=== PATIENT | male | born 1960 | race Hispanic/Latino ===

== ENCOUNTER 2017-01-21 06:35 | Day surgery (SDC) | payer MEDICARE ==
[2017-01-21 06:35] VITALS: BMI 30.1
[2017-01-21 06:45] VITALS: RESP 18; TEMP 97.8; O2SAT 98
[2017-01-21 07:11] LABS: BASO # 0.04 K/mm3 (0.0-2.0); BASO % 0.6 % (0.0-3.0); EOS # 0.2 (0.0-0.7); EOS % 2.8 % (1.5-5.0); GRAN # 3.64 (1.4-6.5); GRAN % 50.4 % (50.0-68.0); HEMATOCRIT 47.5 % (42.0-52.0); LYMPH # 2.6 (1.2-3.4); LYMPH % 36.5 % (22.0-35.0); MEAN CELL VOLUME 89.5 fl (80.0-105.0); MEAN CORPUSCULAR HEMOGLOBIN 33.3 pg (25.0-35.0); MEAN CORPUSCULAR HGB CONC 37.3 g/dl (31.0-37.0); MONO # 0.7 (0.1-0.6); MONO % 9.7 % (1.0-6.0); RED CELL DISTRIBUTION WIDTH 12.8 % (11.5-14.5); WHITE BLOOD COUNT 7.2 10^3/ul (4.5-11.0)
[2017-01-21 07:17] LABS: INR 1.04 (0.93-1.08); PARTIAL THROMBOPLASTIN TIME 27.1 Seconds (23.7-30.8)
[2017-01-21 07:23] LABS: ALB/GLOB RATIO 1.3 (1.1-1.8); ALKALINE PHOSPHATASE 101 U/L (38-126); ALT/SGPT 38 U/L (7-56); AST/SGOT 27 U/L (17-59); BLOOD UREA NITROGEN 11 mg/dL (7-21); CALCIUM 9.3 mg/dL (8.4-10.5); CARBON DIOXIDE 27 mmol/L (21-33); CHLORIDE 105 mmol/L (98-107); GFR AFRICAN-AMERICAN > 60; GLUCOSE,RANDOM 180 mg/dL (70-110); POTASSIUM 4.3 mmol/L (3.6-5.0); SODIUM 142 mmol/L (132-148)
[2017-01-21 07:34] LABS: TROPONIN I < 0.01 ng/mL
--- NOTE | 2017-01-21 08:17 | RAD ---
HISTORY: CHEST PAIN COMPARISON: 03/22/2014 FINDINGS: LUNGS: No active pulmonary disease. PLEURA: No significant pleural effusion identified, no pneumothorax apparent. CARDIOVASCULAR: Normal. OSSEOUS STRUCTURES: No significant abnormalities. VISUALIZED UPPER ABDOMEN: Normal. OTHER FINDINGS: None. IMPRESSION: No active disease.
--- NOTE | 2017-01-21 08:59 | ED PDOC ---
Arrival/HPI - General Chief Complaint: Chest Pain Time Seen by Provider: 01/21/17 07:05 Historian: Patient - History of Present Illness Narrative History of Present Illness (Text): 01/21/17 07:00 Nelson Suh is a 56 year old male, whose PMH includes five cardiac stents, presents to the emergency department complaining of chest pain since last night. Patient describes the pain as a pressure sensation at the sub-sternal. Patient notes calling Dr. Blackburn who advised him to come into the emergency department for evaluation. Patient denies shortness of breath, cough, fever, headache, or other complaints. Patient is also a heavy smoker (1 pack per day). PMD: Dr. Shannon Anglin Time/Duration: Other (last night) Symptom Onset: Sudden Symptom Course: Unchanged Quality: Pressure Context: Home Past Medical History - Provider Review Nursing Documentation Reviewed: Yes - Infectious Disease Hx of Infectious Diseases: None - Tetanus Immunization Tetanus Immunization: Unknown - Cardiac Hx Angina: Yes Hx Cardiac Arrhythmia: Yes Hx Hypertension: Yes Hx Pacemaker: No - Pulmonary Hx Respiratory Disorders: No - Neurological Hx Paralysis: No - HEENT Hx HEENT Disorder: (glasses, [place] right ear) - Renal Hx Renal Disorder: No - Endocrine/Metabolic Hx Diabetes Mellitus Type 2: Yes (on insulin) - Hematological/Oncological Hx Blood Transfusions: Yes (2003) - Integumentary Hx Dermatological Disorder: No - Musculoskeletal/Rheumatological Hx Musculoskeletal Disorders: No Hx Falls: No - Gastrointestinal Hx Gastroesophageal Reflux: Yes - Genitourinary/Gynecological Hx Genitourinary Disorders: No - Psychiatric Hx Psychophysiologic Disorder: No Hx Emotional Abuse: No Hx Physical Abuse: No Hx Substance Use: No - Surgical History Hx Cholecystectomy: Yes Hx Coronary Stent: Yes (x5) Other/Comment: ears - Anesthesia Hx Anesthesia Reactions: No Hx Malignant Hyperthermia: No - Suicidal Assessment Feels Threatened In Home Enviroment: No Family/Social History - Physician Review Nursing Documentation Reviewed: Yes Family/Social History: Unknown Family HX Smoking Status: Heavy Smoker > 10 Cigarettes Daily Hx 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) Hx Substance Use: No Hx Substance Use Treatment: No Allergies/Home Meds Allergies/Adverse Reactions: Allergies No Known Allergies Allergy (Verified 01/04/15 04:46) Home Medications: Home Meds Medication Instructions Recorded Confirmed Metformin HCl 1,000 mg PO BID 03/22/14 01/21/17 Atorvastatin Calcium [Lipitor] 80 mg PO DIN 03/24/14 01/21/17 Clopidogrel [Plavix] 75 mg PO DAILY 03/24/14 01/21/17 Aspirin [Ecotrin] 81 mg PO DAILY 01/18/17 01/21/17 Insulin NPH Hum/Reg Insulin Hm 50 units SC ACBD 01/18/17 01/21/17 [Humulin 70/30 70 U/ml-30 U/ml 10 ml] Lisinopril [Zestril] 5 mg PO DAILY 01/18/17 01/21/17 Review of Systems - Review of Systems Constitutional: absent: Fevers Respiratory: absent: SOB, Cough Cardiovascular: Chest Pain (midsternal) Musculoskeletal: absent: Back Pain Neurological: absent: Headache Physical Exam Vital Signs Reviewed: Yes Vital Signs Temp Pulse Resp BP Pulse Ox 01/21/17 16:50 97.8 F 76 18 132/76 01/21/17 15:50 97.8 F 78 18 122/74 01/21/17 14:50 97.8 F 80 18 111/70 01/21/17 14:20 97.8 F 82 18 109/68 01/21/17 14:00 82 01/21/17 13:50 97.8 F 81 18 115/71 01/21/17 13:20 97.8 F 76 18 124/67 01/21/17 12:50 97.8 F 75 18 117/69 01/21/17 12:35 97.8 F 82 18 123/71 01/21/17 12:20 97.8 F 78 18 125/75 01/21/17 12:05 97.8 F 81 18 117/70 01/21/17 11:50 97.8 F 78 18 134/74 01/21/17 11:35 97.8 F 80 18 117/70 01/21/17 11:20 97.8 F 75 18 116/73 01/21/17 11:05 97.8 F 72 18 114/70 01/21/17 08:16 100 H 18 135/89 98 01/21/17 06:35 97.8 F 108 H 18 138/80 98 Temperature: Afebrile Blood Pressure: Normal Pulse: Tachycardic Respiratory Rate: Normal Appearance: Positive for: Well-Appearing, Non-Toxic, Comfortable Pain Distress: None Mental Status: Positive for: Alert and Oriented X 3 - Systems Exam Head: Present: Atraumatic, Normocephalic Pupils: Present: PERRL Extroacular Muscles: Present: EOMI Conjunctiva: Present: Normal Mouth: Present: Moist Mucous Membranes Neck: Present: Normal Range of Motion Respiratory/Chest: Present: Clear to Auscultation, Good Air Exchange. No: Respiratory Distress, Accessory Muscle Use Cardiovascular: Present: Tachycardic. No: Murmurs Abdomen: Present: Normal Bowel Sounds. No: Tenderness, Distention, Peritoneal Signs Upper Extremity: Present: Normal Inspection. No: Cyanosis, Edema Lower Extremity: Present: Normal Inspection. No: Edema Neurological: Present: GCS=15, CN II-XII Intact, Speech Normal Skin: Present: Warm, Dry, Normal Color. No: Rashes Psychiatric: Present: Alert, Oriented x 3, Normal Insight, Normal Concentration Medical Decision Making ED Course and Treatment: 01/21/17 07:00 Impression: 56 year old male with chest pain described as pressure since last night. No cough, shortness of breath, or fever. Plan: -- EKG -- Chest X-ray -- Aspirin and Plavix -- Labs -- Reassess and disposition Progress Notes: EKG: Ordered, reviewed, and independently interpreted the EKG. Rate : 113 BPM Rhythm :sinus tachycardia Interpretation : Wide axis deviation. No changes compared to previous EKG. Comparison : 03/22/2014 01/21/17 Chest X-ray: Creator : CRYS QIU MD COMPARISON:03/22/2014 FINDINGS: LUNGS: No active pulmonary disease. PLEURA: No significant pleural effusion identified, no pneumothorax apparent. CARDIOVASCULAR: Normal. OSSEOUS STRUCTURES: No significant abnormalities. VISUALIZED UPPER ABDOMEN: Normal. OTHER FINDINGS: None. IMPRESSION: No active disease. 01/21/17 07:40 Reevaluation: On reevaluation the patient feels better and is in no acute distress. I have discussed the results and plan with the patient, who expresses understanding. Patient given the opportunity to ask question, all questions were answered and there is agreement with the plan to discharge the patient home. Patient is stable for discharge. Patient was instructed to follow up with physician/clinic in 1-2 days or return if symptoms persist/worsen or new concerning symptoms arise. - Lab Interpretations Lab Results: 01/21/17 07:00 01/21/17 07:00 Lab Results 01/21/17 07:00: PT 11.2, INR 1.04, APTT 27.1 01/21/17 07:00: WBC 7.2, RBC 5.31, Hgb 17.7, Hct 47.5, MCV 89.5, MCH 33.3, MCHC 37.3 H, RDW 12.8, Plt Count 235, MPV 9.0, Gran % 50.4, Lymph % (Auto) 36.5 H, [place] % (Auto) 9.7 H, Eos % (Auto) 2.8, Baso % (Auto) 0.6, Gran # 3.64, Lymph # 2.6, [place] # 0.7 H, Eos # 0.2, Baso # 0.04 01/21/17 07:00: Sodium 142, Potassium 4.3, Chloride 105, Carbon Dioxide 27, Anion Gap 14, BUN 11, Creatinine 0.9, Est GFR ( Amer) > 60, Est GFR (Non- Af Amer) > 60, Random Glucose 180 H, Calcium 9.3, Total Bilirubin 1.0, AST 27, ALT 38, Alkaline Phosphatase 101, Lactate Dehydrogenase 433, Total Creatine Kinase 56, Troponin I < 0.01 D, Total Protein 8.0, Albumin 4.4, Globulin 3.5, Albumin/Globulin Ratio 1.3 I have reviewed the lab results: Yes - RAD Interpretation Radiology Orders: 01/21/17 06:54 CHEST PORTABLE [RAD] Stat Psychological Science Professor: Radiologist - EKG Interpretation Interpreted by ED Physician: Yes Type: 12 lead EKG - Medication Orders Current Medication Orders: Discontinued Medications Aspirin (Aspirin) 325 mg PO STAT STA Stop: 01/21/17 07:58 Last Admin: 01/21/17 08:01 Dose: 325 mg Bivalirudin (Angiomax) Confirm Administered Dose 250 mg IV .STK-MED ONE Stop: 01/21/17 09:54 Last Admin: 01/21/17 16:21 Dose: Clopidogrel Bisulfate (Plavix) 75 mg PO STAT STA Stop: 01/21/17 07:58 Last Admin: 01/21/17 08:01 Dose: 75 mg Fentanyl (Fentanyl) Confirm Administered Dose 100 mcg .ROUTE .STK-MED ONE Stop: 01/21/17 09:55 Last Admin: 01/21/17 10:32 Dose: 100 mcg Comments: Dr. Juan M Blackburn adm. Fentanyl 50 mcg IV @ 1032, an additional dose of Fentanyl 50 mcg IV was given @ 1033 Heparin Sodium (Porcine) (Heparin 1000 Units/500 Ml Ns) Confirm Administered Dose 1,500 mls @ ud IV .STK-MED ONE Stop: 01/21/17 09:55 Sodium Chloride (Sodium Chloride 0.9%) 1,000 mls @ 100 mls/hr IV .Q10H MELONIE Stop: 01/21/17 17:00 Last Admin: 01/21/17 11:58 Dose: 100 mls/hr Iodixanol (Visipaque 320 Mg/Ml 100 Ml) Confirm Administered Dose 100 ml IV .STK- MED ONE Stop: 01/21/17 09:55 Iodixanol (Visipaque 320 Mg/Ml 200 Ml) Confirm Administered Dose 200 ml IV .STK- MED ONE Stop: 01/21/17 09:55 Iohexol (Omnipaque 350mg/Ml 50 Ml) Confirm Administered Dose 50 ml .ROUTE .STK- MED ONE Stop: 01/21/17 09:55 Lidocaine HCl (Lidocaine 2% 20ml Vial) Confirm Administered Dose 20 ml .ROUTE .STK-MED ONE Stop: 01/21/17 09:54 Midazolam HCl (Versed Inj) Confirm Administered Dose 2 mg .ROUTE .STK-MED ONE Stop: 01/21/17 09:55 Last Admin: 01/21/17 10:32 Dose: 2 mg Comments: Dr. Juan M Blackburn adm. Versed 2 mg IV @ 1032 Midazolam HCl (Versed Inj) Confirm Administered Dose 2 mg .ROUTE .STK-MED ONE Stop: 01/21/17 10:32 Last Admin: 01/21/17 10:33 Dose: 1 mg - Scribe Statement The provider has reviewed the documentation as recorded by the Scribe 01/21/2017 Marilyn Reynolds Provider Scribe Attestation: All medical record entries made by the Scribe were at my direction and personally dictated by me. I have reviewed the chart and agree that the record accurately reflects my personal performance of the history, physical exam, medical decision making, and the department course for this patient. I have also personally directed, reviewed, and agree with the discharge instructions and disposition. Disposition/Present on Arrival - Present on Arrival Any Indicators Present on Arrival: No History of DVT/PE: No History of Uncontrolled Diabetes: No Urinary Catheter: No History of Decub. Ulcer: No History Surgical Site Infection Following: None - Disposition Have Diagnosis and Disposition been Completed?: Yes Diagnosis: Chest pain Disposition: HOSPITALIZED Disposition Time: 07:40 Condition: STABLE
[2017-01-21] MEDS ORDERED: Lidocaine 2% Inj (20ml) ONE (09:53)
[2017-01-21] MEDS ORDERED: Iohexol 350mgl/ml 50 ML ONE (09:54)
[2017-01-21] MEDS ORDERED: Iodixanol 320 MG/ML 100 ML BOTTLE IV ONE (09:54)
[2017-01-21] MEDS ORDERED: Midazolam 2 MG/2 ML VIAL ONE ×2 (09:54→10:31)
[2017-01-21] MEDS ORDERED: Iodixanol 320 MG/ML 200 ML BOTTLE IV ONE (09:54)
[2017-01-21] MEDS ORDERED: Sodium Chloride 0.9% 1,000 ML IV SCH (11:00)
--- NOTE | 2017-01-21 11:21 | CARD ---
APPROVED REPORT EKG Measurement Heart [id number] <Conclusion> Sinus tachycardia Right axis deviation Abnormal ECG
[2017-01-21 17:01] VITALS: BP 132/76; PULSE 76
--- NOTE | 2017-01-21 17:11 | CARDCATH ---
DATE OF PROCEDURE 01/21/2017 HISTORY The patient is a 56-year-old male who called me this morning with progressive angina including angina at rest. He was asked to come to the emergency room where he reported to the emergency room with an EKG that showed no ST elevation NM. 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 He continues to smoke despite multiple attempts to stop. Because of this, an urgent cardiac catheterization was recommended. PROCEDURE Left heart catheterization with coronary angiography and left ventriculogram. The right femoral artery was cannulated with 6-[place] sheath. There were no complications. Findings on catheterization revealed a left ventricle that contracted normally. It is unremarkable. The ejection fraction of 60%. His coronary anatomy revealed a right dominant circulation. The RCA revealed a patent stent in its proximal portion. In the midportion of the RCA, there was a 50% stenosis noted. The left main artery was unremarkable. The LAD revealed a long patent stent in the proximal to the midportion. The rest of the LAD as well as diagonal vessels revealed diffuse atherosclerosis. The circumflex artery was a small vessel revealed a patent stent in its in its proximal portion. Angio-Seal was used to close the femoral artery site. The patient tolerated the procedure well. In summary, the procedure revealed patent stents in the LAD, circumflex artery and RCA with a 50% stenosis in the mid RCA. LV function is normal. Given these findings, the patient will need to remain on aspirin indefinitely and undergo a strict cardiac risk reduction program. I have discussed with him and his family about the need to stop smoking. Jose Blackburn MD
== END 2017-01-21 19:20 | disposition home or self-care (01) ==
LOC: ED 06:35 → CATH 08:24 → 2RSO 10:58 → CATH 19:20
PROVIDERS: ATTEND Internal Medicine Cardiovascular Disease
DX: I25.10 Atherosclerotic heart disease of native coronary artery without angina pectoris (principal); I25.2 Old myocardial infarction; F17.210 Nicotine dependence, cigarettes, uncomplicated; E11.9 Type 2 diabetes mellitus without complications; I10 Essential (primary) hypertension; Z95.5 Presence of coronary angioplasty implant and graft; Z79.4 Long term (current) use of insulin; Z79.84 Long term (current) use of oral hypoglycemic drugs; Z79.02 Long term (current) use of antithrombotics/antiplatelets; Z79.82 Long term (current) use of aspirin
CPT/HCPCS: 71010; 80053; 82550; 83615; 84484; 85025; 85610; 85730; 93005; 93458; 99152; 99284; C1760; C1769; J1644; J2250; J3010; J7030; J7040